=== PATIENT | female | born 2000 | race Caucasian/White ===

== ENCOUNTER → 2022-10-15 08:51 | Outpatient (CLI) | payer OTHER, SELFPAY ==
--- NOTE | 2022-10-15 | DI.NM.S_ITS ---
PROCEDURE: NM HIDA WITH CCK PHARMACEUTICAL: 5.5 mCi Tc-99m mebrofenin IV; 1 mcg CCK IV. INDICATIONS: Right lower quadrant pain TECHNIQUE: Following intravenous administration of Tc-99m mebrofenin, sequential anterior abdominal images were obtained. To evaluate the contractile response of the gallbladder in response to Cholecystokinin (CCK), sincalide (0.02 ?g/kg) was administered by slow intravenous infusion approximately 60 minutes after the administration of the radiopharmaceutical. Sequential imaging was continued for 30 minutes after the start of CCK infusion. Gallbladder ejection fraction was calculated. COMPARISON: None. FINDINGS: Biliary scan: There is normal tracer uptake and excretion by the liver. There is normal visualization of the intrahepatic ducts, common bile duct, and gallbladder. There is normal tracer transit into the duodenum. CCK stimulation: There is normal contractile response of the gallbladder to CCK infusion. The calculated gallbladder ejection fraction is 97% ; normal values are above 35%. It has been shown that any patient abdominal pain after CCK administration is related to the rate of CCK injection, rather than to any underlying gallbladder disease (Clinical Nuclear Medicine 2012; 37: 63-70. Journal of Nuclear Medicine 2014; 55: 1-9). IMPRESSION: Patent cystic duct. Normal gallbladder ejection fraction. Dictated by: Orlin Rosales M.D. on 10/15/2022 at 10:37 Approved by: Orlin Rosales M.D. on 10/15/2022 at 10:38
== END ==
LOC: NUCM 08:55
PROVIDERS: PCP Physician Assistant Medical; Referring Provider Physician Assistant Medical; Visit Provider Physician Assistant Medical
DX: R10.31 Right lower quadrant pain (principal)
CPT/HCPCS: 78227; A9537; J2805

== ENCOUNTER 2022-12-27 07:57 | Day surgery (SDC) | payer OTHER, SELFPAY ==
[2022-12-27] VITALS (9 sets, daily range): BP systolic 78–109; BP diastolic 40–75; PULSE 71–87; RESP 14–20; TEMP 36.5–36.6; O2SAT 95–100; BMI 30.4
[2022-12-27] MEDS: LACTATED RINGERS 1,000 ML 120 ML IV (08:11)
--- NOTE | 2022-12-27 08:38 | P.HP_ITS ---
History of Present Illness History of Present Illness Date Patient Seen: 12/27/22 Time Patient Seen: 08:38 Chief complaint: SDC Narrative: I reviewed my office note. No changes apart from slight improvement in bowel output with fiber. Less pain. There has been some bleeding and she feels as though there might be an internal hemorrhoid. [facility] Social History household members: family Smoking Status: Never smoker alcohol intake: current Meds Home Medications and Allergies Home Medications Medication Instructions Recorded Confirmed Type albuterol 90 mcg/actuation aerosol 90 mcg inhalation PRN PRN Wheezing 12/27/22 12/27/22 History inhaler clindamycin in 5 % dextrose 1 unit topical CONT 12/27/22 12/27/22 History duloxetine 60 mg capsule,delayed 60 mg PO DAILY 12/27/22 12/27/22 History release sprinkle loratadine 10 mg tablet 10 mg PO DAILY 12/27/22 12/27/22 History montelukast 10 mg tablet 10 mg PO DAILY 12/27/22 12/27/22 History (Singulair) ondansetron HCl 8 mg tablet 8 mg PO PRN PRN Nausea 12/27/22 12/27/22 History Allergies Allergy/AdvReac Type Severity Reaction Status Date / Time latex Allergy Intermediate ITCHING Verified 12/27/22 08:14 Penicillins Allergy Intermediate Rash Verified 12/27/22 08:15 morphine AdvReac Mild Fainting Verified 12/27/22 08:14 Review of Systems Review of Systems ROS: Yes All systems reviewed with the patient and are negative except as otherwise documented Exam Vital Signs (past 8 hours): - 12/27/22 08:23 Temperature 97.8 F Pulse Rate 83 Respiratory Rate 16 Blood Pressure 109/75 Pulse Oximetry 100 Oxygen Delivery Method Room Air Oxygen Delivery Method Room Air Const General: cooperative HENMT Head: normal to inspection Eyes General: appearance normal, both eyes and all related structures Neck Neck: normal visual inspection Chest Chest: normal inspection of the chest Resp Effort & Inspection: normal respiratory effort Cardio Rate: regular rate GI Inspection: normal to inspection Skin General: no rashes or lesions noted Neuro General: patient alert and patient awake Extrem General: normal to inspection and no pedal edema Psych Appearance: grossly normal Assessment & Plan Assessment & Plan narrative: 22-year-old female with altered bowel habit. Colonoscopy is pursued today to exclude obstructing pathology. She is recently had some rectal bleeding.
--- NOTE | 2022-12-27 08:39 | PM.PREOP ---
Pre-operative Note Interval Note History & Physical reviewed/Exam performed by Physician: Yes Changes to H&P: No ASA Class (for procedural sedation): II
--- NOTE | 2022-12-27 09:22 | P.OP.COLON_ITS ---
Operative Date/Time/Diagnoses Date of procedure: 12/27/22 Time of procedure: 09:22 Pre-op diagnosis: Altered bowel habit abdominal pain constipation Post-op diagnosis: same Procedure & Clinicians Study performed: Colonoscopy Same procedure as scheduled: Yes Indications: Altered bowel habit abdominal pain constipation Surgeon: Jose Aquino Procedure Notes SCOAP/Timeout: Done Procedure in detail: After the risks and benefits were explained, written and verbal informed consent was obtained. The patient was brought into the procedure room and placed into the left lateral decubitus position. Please see anesthesia notes for sedation details. Digital rectal examination was accomplished. The scope was introduced into the patient and advanced under direct visualization to the cecum as identified by the appendiceal orifice and ileocecal valve. The scope was slowly withdrawn to carefully examine the mucosa for any defects or lesions. Comprehensive imaging was accomplished throughout the rectum including the d entate line. The colon was decompressed, the scope was then removed from the patient who tolerated the procedure well. Pediatric colonoscope Bowel prep adequate Scope withdrawal time: 6 minutes Sedation minutes: 13 Specimen(s): none sent Complications: none Impression: Minimal grade 1 internal hemorrhoid was noted. No active bleeding. No evidence of proctitis nor colitis. No polyps or obstructing pathology no mass lesions. The terminal ileum was interrogated and appeared visually normal. Endoscopic diagnosis 1. Visually normal colonoscopy 2. Minimal internal hemorrhoidal cushions (grade 1) Post-procedure Plan for aftercare: 1. Continue fiber based bowel regimen follow-up on response in GI clinic in the next several weeks. Disposition: PACU
== END 2022-12-27 10:35 | disposition home or self-care (01) ==
PROVIDERS: PCP Physician Assistant Medical; Referring Provider Internal Medicine Gastroenterology; Visit Provider Internal Medicine Gastroenterology
PROC: 0DJD8ZZ Inspection of Lower Intestinal Tract, Via Natural or Artificial Opening Endoscopic (ICD-10-PCS; CPT 45378; principal; 2022-12-27 09:00)
DX: R10.9 Unspecified abdominal pain (principal); K59.00 Constipation, unspecified; K64.0 First degree hemorrhoids
CPT/HCPCS: 45378; J2250; J2704

== ENCOUNTER 2023-03-30 12:18 | Day surgery (SDC) | payer OTHER, SELFPAY ==
--- NOTE | 2023-03-30 | PATH_ITS ---
[facility] Accession Number: [id number] No. of containers..03 Tissue . 01 Material submitted: . PART A: duodenum - DUODENUM PART B: stomach - ANTRUM PART C: esophagus - MID ESOPHAGUS . 01 Diagnosis: A. Duodenum, Biopsy: Duodenal mucosa with no diagnostic abnormality. Negative for active inflammation, features of sprue, dysplasia, or malignancy. . B. Stomach, Antrum, Biopsy: Antral mucosa with mild chronic gastritis. Negative for Helicobacter by immunohistochemistry. Negative for intestinal metaplasia. Negative for dysplasia and malignancy. . C. Mid Esophagus, Biopsy: Squamous epithelium with no diagnostic abnormality. Intraepithelial eosinophils are not increased. Negative for dysplasia and malignancy. [facility] 04/05/2023 1852 Local . 01 Electronically signed: . Shavonne Duenas MD, Pathologist NPI- [id number] . 01 Gross description: . A. Received in formalin, labeled with the patient's name and , designated duodenum, and consists of two stanley soft tissue fragments ranging from 0.2 cm to 0.3 cm in greatest dimension. Submitted entirely in cassette A1. B. Received in formalin, labeled with the patient's name and , designated antrum, and consists of two stanley soft tissue fragments ranging from 0.2 cm to 0.4 cm in greatest dimension. Submitted entirely in cassette B1. C. Received in formalin, labeled with the patient's name and , designated mid esophagus, and consists of a single stanley soft tissue fragment measuring 0.4 cm in greatest dimension. Submitted entirely in cassette C1. ([id number]) /[facility] 04/02/2023 1432 Local . 01 Microscopic: . B. An immunohistochemical stain was performed to evaluate for Helicobacter organisms and is negative. The control stain showed appropriate reactivity. . * This test was developed and its performance characteristics determined by [facility]. It has not been cleared or approved by the U.S. Food and Drug Administration. The FDA has determined that such clearance or approval is not necessary. This test is used for clinical purposes. It should not be regarded as investigational or for research. . 01 Pathologist provided ICD-10: R13.14 . 01 CPT . 273883, 272856, 554478, [id number] Specimen Comment: A courtesy copy of this report has been sent to [phone] Performed at: 01 [facility] [address] [place] [address], [place], [place] [id number] MD Luis Alfredo Mack MD Phone: [phone]
[2023-03-30 12:45] VITALS: BP 129/79; PULSE 108; RESP 20; TEMP 36.3; O2SAT 100; BMI 31.7
--- NOTE | 2023-03-30 12:53 | P.HP_ITS ---
History of Present Illness History of Present Illness Date Patient Seen: 03/30/23 Time Patient Seen: 12:53 Chief complaint: SDC Narrative: Dysphagia. I reviewed Alberto Bobo's note. No changes. [facility] Social History household members: family Smoking Status: Never smoker alcohol intake: current Meds Home Medications and Allergies Home Medications Medication Instructions Recorded Confirmed Type albuterol 90 mcg/actuation aerosol 90 mcg inhalation PRN PRN Wheezing 12/27/22 03/30/23 History inhaler clindamycin in 5 % dextrose 1 unit topical CONT 12/27/22 03/30/23 History duloxetine 60 mg capsule,delayed 60 mg PO DAILY 12/27/22 03/30/23 History release sprinkle loratadine 10 mg tablet 10 mg PO DAILY 12/27/22 03/30/23 History montelukast 10 mg tablet 10 mg PO DAILY 12/27/22 12/27/22 History (Singulair) ondansetron HCl 8 mg tablet 8 mg PO PRN PRN Nausea 12/27/22 03/30/23 History EDGAR (28) 1 tab PO DAILY 03/30/23 03/30/23 History atomoxetine 40 mg capsule 40 mg PO BID 03/30/23 03/30/23 History (Strattera) Allergies Allergy/AdvReac Type Severity Reaction Status Date / Time latex Allergy Intermediate ITCHING Verified 03/30/23 12:45 Penicillins Allergy Intermediate Rash Verified 03/30/23 12:45 morphine AdvReac Mild Fainting Verified 03/30/23 12:45 Review of Systems Review of Systems ROS: Yes All systems reviewed with the patient and are negative except as otherwise documented Exam Const General: cooperative HENMT Head: normal to inspection Eyes General: appearance normal, both eyes and all related structures Neck Neck: normal visual inspection Chest Chest: normal inspection of the chest Resp Effort & Inspection: normal respiratory effort Cardio Rate: regular rate GI Inspection: normal to inspection Skin General: no rashes or lesions noted Neuro General: patient alert and patient awake Extrem General: normal to inspection and no pedal edema Psych Appearance: grossly normal Assessment & Plan Assessment & Plan narrative: 22-year-old female with dysphagia to liquids and solids. Diagnostic EGD with possible dilatation is pursued today.
[2023-03-30] MEDS: LACTATED RINGERS 1,000 ML 84 ML IV (12:54)
--- NOTE | 2023-03-30 12:54 | PM.PREOP ---
Pre-operative Note Interval Note History & Physical reviewed/Exam performed by Physician: Yes Changes to H&P: No ASA Class (for procedural sedation): II
--- NOTE | 2023-03-30 13:38 | P.OP.EGD_ITS ---
Operative Date/Time/Diagnoses Date of procedure: 03/30/23 Time of procedure: 13:39 Pre-op diagnosis: Dysphagia abdominal pain Post-op diagnosis: same Procedure & Clinicians Study performed: EGD with biopsies Same procedure as scheduled: Yes Indications: Dysphagia nausea Surgeon: Jose Aquino Procedure Notes SCOAP/Timeout: Done Procedure in detail: After the risks and benefits were explained, written and verbal informed consent was obtained. The patient was brought into the procedure room and placed into the left lateral decubitus position. Please see anesthesia notes for sedation details. The scope was introduced into the mouth through the bite block and advanced under direct visualization to the 2nd portion of the duodenum. The scope was slowly withdrawn carefully examining the mucosa for any defects or lesions. Retroflexed views were accomplished in the stomach. The stomach was decompressed, the scope was then removed from the patient who tolerated the procedure well. Sedation minutes: 14 Complications: none Impression: 1. Duodenum: This was visually normal from the bulb through to the 2nd portion. Considering the patient's symptoms, random D2 biopsies were taken for exclusion of sprue. 2. Stomach: Minimal gastropathy was appreciated. No ulcers no outlet obstruction no mass lesions. No overt pathology throughout. Random antral biopsies were taken for exclusion of H pylori or other pathology. 3. Esophagus: The squamocolumnar junction correlated with the top of the gastric folds. GE junction was at 36 cm from the incisors. No acute erosive changes. No strictures no mass lesions no rings. The esophagus was entirely normal in appearance throughout so random biopsies were taken from midesophagus for exclusion of eosinophilic infiltration. Endoscopic diagnosis 1. Minimal gastropathy 2. Otherwise visually unremarkable EGD Post-procedure Plan for aftercare: 1. Await histopathology. 2. Contingent on the biopsy results, further evaluation of the swallowing symptoms may necessitate esophageal pH and m anometry evaluations. Disposition: PACU
[2023-03-30 13:40] VITALS: BP 107/62; PULSE 100; RESP 18; TEMP 36.2; O2SAT 97
[2023-03-30 13:45] VITALS: BP 108/62; PULSE 87; RESP 16; O2SAT 97
[2023-03-30 13:50] VITALS: BP 101/86; PULSE 87; RESP 14; TEMP 36.6; O2SAT 96
[2023-03-30 13:56] VITALS: BP 126/108; PULSE 79; RESP 16; O2SAT 100
== END 2023-03-30 14:16 | disposition home or self-care (01) ==
PROVIDERS: PCP Physician Assistant Medical; Referring Provider Internal Medicine Gastroenterology; Visit Provider Internal Medicine Gastroenterology
PROC: 0DJ08ZZ Inspection of Upper Intestinal Tract, Via Natural or Artificial Opening Endoscopic (ICD-10-PCS; CPT 43235; principal; 2023-03-30 13:30)
DX: R13.10 Dysphagia, unspecified (principal); R10.9 Unspecified abdominal pain; K31.9 Disease of stomach and duodenum, unspecified; K29.50 Unspecified chronic gastritis without bleeding
CPT/HCPCS: 43239; J2704